=== PATIENT | male | born 1960 | race Caucasian/White ===

== ENCOUNTER 2016-09-08 19:34 | Emergency (ER) | payer OTHER ==
[2016-09-08] MEDS ORDERED: Sodium Chloride 0.9% 10 ML Syringe FLUSH PRN (19:45)
--- NOTE | 2016-09-08 19:49 | EDM.PDOC ---
ED HPI Trauma - General Chief Complaint: Upper Extremity Injury/Pain Stated Complaint: INJURED LEFT WRIST Time Seen by Provider: 09/08/16 19:39 Source: Reports: Patient History Limitations: Reports: No limitations - History of Present Illness INITIAL COMMENTS - FREE TEXT/NARRATIVE: The patient was out riding horse tonight and his horse got spooked and he got bucked off. He has a fractured left wrist and bloody nose. He denies any LOC. He has no headache, neck pain, chest pain, back pain, or abdominal pain. He had some mild left knee pain. The bleeding has stopped now from his nose. [place] had [place] about [place] He has no other health problems. He has an obvious deformity to the left wrist. Occurred When: just prior to arrival Occurred Where: home Method of Injury: fall (Bucked off his horse) Severity: moderate Pain/Injury Location: Reports: face (nose), upper extremity, left (wrist), lower extremity, left (knee) Consciousness: Reports: no loss of consciousness Allergies/ADRs: Allergies No Known Allergies Allergy (Verified 09/08/16 19:52) Home Medications: Ambulatory Orders Aspirin [[place] Aspirin] 81 mg PO DAILY 09/08/16 [Confirmed 09/08/16] Gluc 2KCl/Chondr/Peggy Hy/Hy Ac [Glucosamine & Chondroitin Cap] 1 tab PO DAILY [Confirmed 09/08/16] Multivitamin [Multivitamins] 1 tab PO DAILY 09/08/16 [Confirmed 09/08/16] [place]-3 Fatty Acids [Fish Oil] 1 tab PO DAILY 09/08/16 [Confirmed 09/08/16] Ranitidine [Zantac] 150 mg PO DAILY 09/08/16 [Confirmed 09/08/16] Social & Family History - Tobacco Use Smoking Status *Q: Never Smoker - Recreational Drug Use Recreational Drug Use: No Review of Systems - Review of Systems Review Of Systems: See Below Constitutional: Reports: no symptoms Eyes: Reports: no symptoms Ears: Reports: no symptoms Nose: Reports: epistaxis Mouth/Throat: Reports: no symptoms Respiratory: Reports: No Symptoms Cardiovascular: Reports: no symptoms GI/Abdominal: Reports: No symptoms Genitourinary: Reports: no symptoms Musculoskeletal: Reports: other (Left wrist fracture and left knee pain) Trauma Exam - Physical Exam Exam: See Below Exam Limited By: No limitations General Appearance: Reports: alert, no apparent distress Head: Reports: atraumatic, normocephalic Eyes: bilateral eye: EOMI Ears: Reports: normal external exam Nose: Reports: other (dried blood to the right nare but no active bleeding. No pain upon palpation and no edema and no instability) Throat/Mouth: Reports: Normal inspection Neck: Reports: non-tender, normal alignment, normal inspection Respiratory Exam: Reports: no respiratory distress, lungs clear, normal breath sounds Cardiovascular: Reports: regular rate, rhythm, no edema, no murmur GI/Abdominal: Reports: soft, non tender, no organomegaly Back: Reports: normal inspection, non-tender Extremities: Reports: other ("Dinner fork" deformity to the left wrist with good sensation and pulses. Mild pain upon palpation to the left medial knee. No ligament laxity noted. Good sensation and pulses distally.) ED TRAUMA EXTREMITY PROCEDURES - Joint Reduction Site: other (Left wrist) Sedation: hematoma/fracture block Local anesthesia - Lidocaine (Xylocaine): 1% plain Local anesthetic volume: 3cc Pre-procedure NV status: normal Post-procedure NV status: normal Technique: traction/counter traction Number of Attempts: 1 Post-reduction imaging: acceptably reduced, fracture seen Joint Reduction Complications: No Progress/Comments: This was a reduction of a left distal radius fracture - Splinting Left Upper Extremity Splint site: Left long arm splint Pre-procedure NV status: normal Post-procedure NV status: normal Splint material: fiberglass Splint design: sugar tong Applied & form fitted by: provider Provider post-splint application NV check: NV status normal, good position Complications: No Course - Vital Signs Last Recorded V/S: Last Vital Signs Temp 98.2 F 09/08/16 19:37 Pulse 78 09/08/16 19:37 Resp 16 09/08/16 19:37 BP Pulse Ox 117 H 09/08/16 19:37 - Orders/Labs/Meds Orders: Active Orders 24 hr Category Date Time Status Peripheral IV Care [RC] . DIRECTED Care 09/08/16 19:45 Active Wrist 2V Lt [CR] Stat Exams 09/08/16 21:18 Taken Wrist Comp Min 3V Lt [CR] Stat Exams 09/08/16 19:45 Taken Sodium Chloride 0.9% [Saline Flush] Med 09/08/16 19:45 Active 10 ml FLUSH ASDIRECTED PRN Peripheral IV Insertion Adult [OM.PC] Routine Oth 09/08/16 19:45 Ordered Medication Orders Sodium Chloride (Saline Flush) 10 ml FLUSH ASDIRECTED PRN PRN Reason: Keep Vein Open Last Admin: 09/08/16 19:58 Dose: 10 ml Meds: Medications Generic Name Dose Route Start Last Admin Trade Name Freq PRN Reason Stop Dose Admin Sodium Chloride 10 ml 09/08/16 19:45 09/08/16 19:58 Saline Flush FLUSH 10 ml ASDIRECTED PRN Administration Keep Vein Open Discontinued Medications Generic Name Dose Route Start Last Admin Trade Name Freq PRN Reason Stop Dose Admin Hydromorphone HCl 1 mg 09/08/16 20:33 09/08/16 20:39 Dilaudid IVPUSH 09/08/16 20:34 1 mg ONETIME ONE Administration Hydromorphone HCl 0.5 mg 09/08/16 21:07 09/08/16 21:18 Dilaudid IVPUSH 09/08/16 21:08 Not Given ONETIME ONE Hydromorphone HCl Confirm 09/08/16 21:09 09/08/16 21:18 Dilaudid Administered 09/08/16 21:10 Not Given Dose 0.5 mg .ROUTE .STK-MED ONE Hydromorphone HCl 0.5 mg 09/08/16 21:18 09/08/16 21:19 Dilaudid IVPUSH 09/08/16 21:19 0.5 mg ONETIME ONE Administration Lidocaine HCl 50 ml 09/08/16 20:33 09/08/16 20:42 Xylocaine 1% INJECT 09/08/16 20:34 50 ml ONETIME ONE Administration Ondansetron HCl 4 mg 09/08/16 20:51 09/08/16 20:58 Zofran IVPUSH 09/08/16 20:52 4 mg ONETIME ONE Administration - Re-Assessments/Exams Free Text/Narrative Re-Assessment/Exam: 09/08/16 20:00 I ordered an IV saline lock and an x-ray of his left wrist. 09/08/16 21:53 The x-ray confirmed the fracture. I called Dr Marshall to let him know what is going on and he okayed me to do a reduction of the left distal radius fracture. I reduced the fracture. I splinted him and I will have him follow up with Dr Marshall. Departure - Departure Time of Disposition: 21:55 Disposition: Home, Self-Care 01 Condition: good Clinical Impression: Epistaxis Fracture of radius Qualifiers: Encounter type: initial encounter Radius location: distal Fracture type: closed Fracture morphology: Colles' Laterality: left Qualified Code(s): S52.532A - Colles' fracture of left radius, initial encounter for closed fracture Contusion of left knee Qualifiers: Encounter type: initial encounter Qualified Code(s): S80.02XA - Contusion of left knee, initial encounter Referrals: Tommy Marshall MD [Physician] - 1 Week Forms: ED Department Discharge Additional Instructions: Ice your wrist for 15 minutes every other hour while awake for 2 days. Elevate your wrist above your heart as much as you can for 2 days. Take motrin or aleve for pain or you can take 1 to 2 hydrocodone. Follow up with Dr Marshall. He said he can see you on Tuesday but call tomorrow morning to make your appointment. You may also follow up with Dr Epstein and his number is [phone]. There is also Dr [facility]iano with [facility] and his number is [phone]. Please return if you are worse such as more pain or swelling. - My Orders Last 24 Hours: My Active Orders 09/08/16 19:45 Peripheral IV Care [RC] . DIRECTED Wrist Comp Min 3V Lt [CR] Stat Sodium Chloride 0.9% [Saline Flush] 10 ml FLUSH ASDIRECTED PRN Peripheral IV Insertion Adult [OM.PC] Routine 09/08/16 21:18 Wrist 2V Lt [CR] Stat - Assessment/Plan Last 24 Hours: My Active Orders 09/08/16 19:45 Peripheral IV Care [RC] . DIRECTED Wrist Comp Min 3V Lt [CR] Stat Sodium Chloride 0.9% [Saline Flush] 10 ml FLUSH ASDIRECTED PRN Peripheral IV Insertion Adult [OM.PC] Routine 09/08/16 21:18 Wrist 2V Lt [CR] Stat
[2016-09-08] MEDS ORDERED: Lidocaine 1% 50 ML MDV INJECT ONE (20:33)
[2016-09-08] MEDS ORDERED: HYDROmorphone 1 MG/ML Syringe IVPUSH ONE ×2 (20:33→21:07)
[2016-09-08] MEDS ORDERED: Ondansetron 4 MG/2 ML SDV IVPUSH ONE (20:51)
[2016-09-08] MEDS ORDERED: HYDROmorphone 0.5 MG/0.5 ML Syringe ONE (21:09)
[2016-09-08] MEDS ORDERED: HYDROmorphone 0.5 MG/0.5 ML Syringe IVPUSH ONE (21:18)
--- NOTE | 2016-09-09 11:45 | CR ---
Left wrist: Four views of the left wrist were obtained. Comminuted distal left radial fracture seen with articular extension. Posterior impaction is seen as well as mild displacement. Mild joint space narrowing is noted off the distal navicular bone. Distal ulna appears intact. Soft tissue swelling is identified. Impression: 1. Distal radial fracture as noted above. Diagnostic code #3
--- NOTE | 2016-09-09 11:45 | CR ---
Left wrist: Two views of the left wrist were obtained. Comparison: Previous left wrist study performed on the same day (8:25 PM). Alignment is improved. Mild continued posterior impaction is seen. Fiberglass cast or splint is in place. Other findings are stable and incidental. Impression: 1. Mild continued posterior impaction but alignment is improved from prior exam. 2. Fiberglass cast or splint is in place. Diagnostic code #2
== END 2016-09-08 22:15 | disposition home or self-care (01) ==
LOC: JD.ED 19:34
DX: S52.532A Colles' fracture of left radius, initial encounter for closed fracture (principal); S80.02XA Contusion of left knee, initial encounter; R04.0 Epistaxis; V80.010A Animal-rider injured by fall from or being thrown from horse in noncollision accident, initial encounter; Z79.899 Other long term (current) drug therapy
CPT/HCPCS: 25565; 29125; 73100; 73110; 96374; 96375; 96376; 99284; J1170; J2405; J7050; 25605

== ENCOUNTER 2019-04-02 05:06 | Emergency (ER) | payer OTHER ==
[2019-04-02] MEDS ORDERED: Ondansetron 4 MG/2 ML SDV IVPUSH ONE (05:37)
[2019-04-02] MEDS ORDERED: HYDROmorphone 0.5 MG/0.5 ML Syringe IVPUSH ONE (05:37)
--- NOTE | 2019-04-02 05:38 | EDM.PDOC ---
ED HPI GENERAL MEDICAL PROBLEM - General Chief Complaint: Chest Pain Stated Complaint: CHEST PAIN Time Seen by Provider: 04/02/19 05:17 Source of Information: Reports: Patient, Family () History Limitations: Reports: No Limitations - History of Present Illness INITIAL COMMENTS - FREE TEXT/NARRATIVE: Mr. Wen is a very pleasant 58-year-old man with no chronic medical issues, who states that he was woken at 04:00 this morning with sudden-onset left-sided chest pain, dyspnea, feeling hot and diaphoretic, and nauseated. He describes his chest pain as a pressure and sharp in character, felt to his anterolateral left chest, lateral to the midclavicular line. It is a pain, not a discomfort. It waxes and wanes, and while the patient initially told me that he had not identified any modifiers, on examination, I discovered that his pain in fact became immediately worse upon each inspiration, and sometimes with certain movements, but that if he remained perfectly still, his pain abated to nearly nothing. The patient did not take any [id number] or home remedies prior to coming to the ED. The patient states that he has been diagnosed with pleurisy in the past (he does not know how that diagnosis was made), and that this pain is similar in sensation, but different in distribution - his previous pain had been felt across his chest. Here in the ED, the patient is found to be hemodynamically stable, afebrile, saturating 98% on room air. His ECG, performed by the triage nurse, does not show any acute ischemic changes. Aside from this morning's symptoms, the patient denies any recent illnesses, such as fever, chills, cough, dyspnea, chest pain, palpitations, nausea, vomiting, constipation, diarrhea, abdominal pain, urinary symptoms, recent weight gain or weight loss, recent bloody bowel movements or black bowel movements, recent joint aches, headaches, or rashes. The patient's PCP is Dr. Santiago Cochran. His Orthopedic Surgeon is Dr. Valentino Soriano. Left Chest Pain Score (Numeric/FACES): 7 - Related Data Allergies Allergy/AdvReac Type Severity Reaction Status Date / Time No Known Allergies Allergy Verified 04/02/19 05:13 Home Meds: Home Meds Aspirin [[place] Aspirin] 81 mg PO DAILY 09/08/16 [History] Gluc 2KCl/Chondr/Peggy Hy/Hy Ac [Glucosamine & Chondroitin Cap] 1 tab PO DAILY [History] Multivitamin [Multivitamins] 1 tab PO DAILY 09/08/16 [History] [place]-3 Fatty Acids [Fish Oil] 1 tab PO DAILY 09/08/16 [History] Ranitidine [Zantac] 150 mg PO DAILY 09/08/16 [History] Orphenadrine [Norflex] 1 tab PO Q12H PRN #14 tab.er 04/02/19 [Rx] Past Medical History HEENT History: Reports: Other (See Below) (Left TMJ) Gastrointestinal History: Reports: GERD Genitourinary History: Reports: Renal Calculus Musculoskeletal History: Reports: Fracture (Left distal radius. Bilateral calcanei.) - Past Surgical History HEENT Surgical History: Reports: Adenoidectomy, Tonsillectomy GI Surgical History: Reports: Hernia, Inguinal (bilateral) Musculoskeletal Surgical History: Reports: ORIF (Left distal radius) Social & Family History - Tobacco Use Smoking Status *Q: Never Smoker Tobacco Use Within Last Twelve Months: Smokeless Tobacco (Chewed for a few years when younger) - Caffeine Use Caffeine Use: Reports: Coffee - Alcohol Use Alcohol Use History: Yes Alcohol Use Frequency: Rarely - Recreational Drug Use Recreational Drug Use: No - Living Situation & Occupation Living situation: Reports: , with Spouse Occupation: Employed (Runs equipment) ED ROS GENERAL - Review of Systems Review Of Systems: ROS reveals no pertinent complaints other than HPI. ED EXAM, GENERAL - Physical Exam Exam: See Below Exam Limited By: No Limitations General Appearance: Alert, WD/WN, Mild Distress (Moments of pain with certain movements, inspiration) Eye Exam: Bilateral Eye: EOMI, Normal Inspection Ears: Normal External Exam, Hearing Grossly Normal Nose: Normal Inspection Throat/Mouth: Normal Inspection, Normal Lips, Normal Voice, No Airway Compromise Head: Atraumatic, Normocephalic Neck: Normal Inspection, Full Range of Motion Respiratory/Chest: No Respiratory Distress, Lungs Clear, Normal Breath Sounds, No Accessory Muscle Use, Chest Non-Tender (not reproducible with palpation), Other (Left-sided chest pain is reproducible with inspiration). No: Crackles, Pleural Rub Cardiovascular: Normal Peripheral Pulses, Regular Rate, Rhythm, No Edema, No Gallop, No JVD, No Murmur, No Rub Peripheral Pulses: 4+: Radial (L), Radial (R) GI/Abdominal: Normal Bowel Sounds, Soft, Non-Tender, No Organomegaly, No Distention, No Abnormal Bruit, No Mass (Male) Exam: Deferred Rectal (Males) Exam: Deferred Back Exam: Normal Inspection, Full Range of Motion, NT Extremities: Normal Inspection, Normal Range of Motion, No Pedal Edema, Normal Capillary Refill Neurological: Alert, Oriented, Normal Cognition, No Motor/Sensory Deficits Psychiatric: Normal Affect Skin Exam: Warm, Dry, Intact, Normal Color, No Rash EKG INTERPRETATION EKG Date: 04/02/19 Time: 05:09 Rhythm: NSR Rate (Beats/Min): 64 [place]: Normal P-Wave: Present QRS: Normal ST-T: Normal QT: Normal Comparison: NA - No Prior EKG Course - Vital Signs Last Recorded V/S: Last Vital Signs Temp 35.6 C 04/02/19 05:13 Pulse 63 04/02/19 05:13 Resp 15 04/02/19 05:13 BP 122/78 04/02/19 05:13 Pulse Ox 98 04/02/19 05:13 - Orders/Labs/Meds Orders: Active Orders 24 hr Category Date Time Status EKG Documentation Completion [RC] STAT Care 04/02/19 05:19 Active Sodium Chloride 0.9% [Normal Saline] 1,000 ml Med 04/02/19 05:45 Active IV ASDIRECTED Medication Orders Sodium Chloride (Normal Saline) 1,000 mls @ 150 mls/hr IV ASDIRECTED ROSITA Last Admin: 04/02/19 05:47 Dose: 150 mls/hr Labs: Laboratory Tests 04/02/19 04/02/19 04/02/19 Range/Units 05:17 05:17 05:17 WBC 5.09 (4.23-9.07) K/mm3 RBC 5.71 (4.63-6.08) M/mm3 Hgb 15.6 D (13.7-17.5) gm/dl Hct 45.7 (40.1-51.0) % MCV 80.0 D (79.0-92.2) fl MCH 27.3 (25.7-32.2) pg MCHC 34.1 (32.2-35.5) g/dl RDW Std Deviation 44.9 H (35.1-43.9) fL Plt Count 174 (163-337) K/mm3 MPV 11.5 (9.4-12.3) fl Neut % (Auto) 51.3 (34.0-67.9) % Lymph % (Auto) 36.5 (21.8-53.1) % [place] % (Auto) 8.6 (5.3-12.2) % Eos % (Auto) 2.2 (0.8-7.0) Baso % (Auto) 1.2 (0.1-1.2) % Neut # (Auto) 2.61 (1.78-5.38) K/mm3 Lymph # (Auto) 1.86 (1.32-3.57) K/mm3 [place] # (Auto) 0.44 (0.30-0.82) K/mm3 Eos # (Auto) 0.11 (0.04-0.54) K/mm3 Baso # (Auto) 0.06 (0.01-0.08) K/mm3 D-Dimer, Quantitative < 0.19 L (0.19-0.50) mg/L Sodium 144 (136-145) mEq/L Potassium 3.9 (3.5-5.1) mEq/L Chloride 105 (98-107) mEq/L Carbon Dioxide 30 (21-32) mEq/L Anion Gap 12.9 (5-15) BUN 14 (7-18) mg/dL Creatinine 1.2 (0.7-1.3) mg/dL Est Cr Clr Drug Dosing 67.20 mL/min Estimated GFR (MDRD) > 60 (>60) mL/min BUN/Creatinine Ratio 11.7 L (14-18) Glucose 122 H (74-106) mg/dL Calcium 8.8 (8.5-10.1) mg/dL Total Bilirubin 0.6 (0.2-1.0) mg/dL AST 28 (15-37) U/L ALT 42 (16-63) U/L Alkaline Phosphatase 75 (46-116) U/L Troponin I < 0.017 (0.00-0.056) ng/mL Total Protein 6.5 (6.4-8.2) g/dl Albumin 3.5 (3.4-5.0) g/dl Globulin 3.0 gm/dL Albumin/Globulin Ratio 1.2 (1-2) Meds: Medications Generic Name Dose Route Start Last Admin Trade Name Freq PRN Reason Stop Dose Admin Sodium Chloride 1,000 mls @ 150 mls/hr 04/02/19 05:45 04/02/19 05:47 Normal Saline IV 150 mls/hr ASDIRECTED ROSITA Administration Discontinued Medications Generic Name Dose Route Start Last Admin Trade Name Freq PRN Reason Stop Dose Admin Hydromorphone HCl 0.5 mg 04/02/19 05:37 04/02/19 05:48 Dilaudid IVPUSH 04/02/19 05:38 0.5 mg ONETIME ONE Administration Ibuprofen 600 mg 04/02/19 07:12 Motrin PO 04/02/19 07:13 ONETIME ONE Ondansetron HCl 4 mg 04/02/19 05:37 04/02/19 05:47 Zofran IVPUSH 04/02/19 05:38 4 mg ONETIME ONE Administration Orphenadrine Citrate 100 mg 04/02/19 07:12 Norflex PO 04/02/19 07:13 ONETIME STA - Re-Assessments/Exams Free Text/Narrative Re-Assessment/Exam: 04/02/19 05:35 The patient's left-sided chest pain is non-cardiac for a number reasons: It woke the patient from sleep, it is felt to the far left side of his chest, it is a pain, not a discomfort, and it is movement-dependent, especially with inspiration. His ECG shows no acute changes despite him having active chest pain. My greatest concern is for a pulmonary embolus, although if that is negative, then musculoskeletal etiology is most likely. I have ordered a workup includes a D-dimer. In the meantime, I will treat the patient with some Dilaudid and Zofran. 04/02/19 06:10 2-view chest radiograph appears to be grossly normal. The cardiac silhouette is within normal limits. No pulmonary vascular congestion. No pleural effusions. No focal infiltrate. No pneumothorax. Formal read per the Radiologist pending. 04/02/19 07:13 The patient's CBC is completely unremarkable. His CMP is remarkable for a blood glucose mildly elevated at 122, and is otherwise unremarkable. His troponin is undetectably low. His D-dimer is undetectably low. Test results discussed with the patient and his . As above, his entire workup is unremarkable. Based on his history and physical exam, I suspect that the patient is suffering from a spasm of his left intercostal muscles. The patient will be started on Norflex and ibuprofen, and I will prescribe a 7-day course of Norflex. He can take [id number] ibuprofen. Since he received Dilaudid here, I will write a note for work for today. Departure - Departure Time of Disposition: 07:15 Disposition: Home, Self-Care 01 Condition: Good Clinical Impression: Intercostal muscle strain - Discharge Information *PRESCRIPTION DRUG MONITORING PROGRAM REVIEWED*: Not Applicable *COPY OF PRESCRIPTION DRUG MONITORING REPORT IN PATIENT CANDIDO: Not Applicable Prescriptions: Orphenadrine [Norflex] 1 tab PO Q12H PRN #14 tab.er PRN Reason: Muscle Spasm Instructions: Muscle Strain, [id number] Referrals: Santiago Cochran MD [Primary Care Provider] - Valentino Soriano MD [Physician] - Forms: ED Department Discharge, ED Return to Work/School Form Additional Instructions: You were seen in the emergency room for sudden onset left-sided chest pain, along with feeling out of breath, hot, sweaty, and nauseated. Workup in the ER included blood work, a chest x-ray, and an ECG. Your entire workup was unremarkable. You have not suffered a heart attack. You do not have a blood clot in your lungs. You are not anemic. You do not have a collapsed lung. Based on your history, physical exam, and ER tests, the cause of your pain is most likely due to a spasm of some muscles in between your ribs. You have been started on the muscle relaxant Norflex, and a prescription for Norflex has been sent to the [facility], in [place]. Take one tablet of Norflex every 12 hours, starting this evening, 04/02/2019, as prescribed. Addition to Norflex, you may also take [id number] ibuprofen, 3 tablets ( 600 mg) every 8 hours, with food, as needed for discomfort. A note for work has been provided for you for today. Follow-up with your PCP, Dr. Santiago Cochran, as needed. If any other problems, please do not hesitate to return to the ER. - My Orders Last 24 Hours: My Active Orders 04/02/19 05:19 EKG Documentation Completion [RC] STAT 04/02/19 05:45 Sodium Chloride 0.9% [Normal Saline] 1,000 ml IV ASDIRECTED - Assessment/Plan Last 24 Hours: My Active Orders 04/02/19 05:19 EKG Documentation Completion [RC] STAT 04/02/19 05:45 Sodium Chloride 0.9% [Normal Saline] 1,000 ml IV ASDIRECTED
[2019-04-02] MEDS ORDERED: Sodium Chloride 0.9% 1,000 ML IV SCH (05:45)
--- NOTE | 2019-04-02 06:21 | CR ---
Chest: 2 views of the chest were obtained. Comparison: No prior chest x-ray. Heart size and mediastinum are normal. Nodular density is noted overlying the anterior right 1st rib. Lungs otherwise are clear. Bony structures are within normal limits for the patient's age. Impression: 1. Slight nodular density within the upper right chest. This may relate to costochondral calcification but difficult to completely exclude a small nodule within the right upper lung. Noncontrast chest CT could be obtained to hopefully rule out nodule. 2. Nothing acute is otherwise seen on 2 view chest x-ray. Diagnostic code #9
[2019-04-02] MEDS ORDERED: Orphenadrine 100 MG Tab.ER PO STA (07:12)
[2019-04-02] MEDS ORDERED: Ibuprofen 600 MG Tab PO ONE (07:12)
[2019-04-02 07:32] VITALS: BP 109/69; PULSE 53
== END 2019-04-02 07:35 | disposition home or self-care (01) ==
LOC: JD.ED 05:06
DX: S29.011A Strain of muscle and tendon of front wall of thorax, initial encounter (principal); K21.9 Gastro-esophageal reflux disease without esophagitis; Z79.899 Other long term (current) drug therapy; Z87.891 Personal history of nicotine dependence; Z79.82 Long term (current) use of aspirin; X58.XXXA Exposure to other specified factors, initial encounter
CPT/HCPCS: 36415; 71046; 80053; 84484; 85025; 85379; 93005; 96361; 96374; 96375; 99285; A9270; J1170; J2405; J7040; 93010; 99284

== ENCOUNTER 2021-01-18 11:30 | Emergency (ER) | payer OTHER ==
[2021-01-18 11:52] VITALS: BP 127/72; PULSE 71
--- NOTE | 2021-01-18 12:18 | EDM.PDOC ---
ED HPI GENERAL MEDICAL PROBLEM - General Chief Complaint: Lower Extremity Injury/Pain Stated Complaint: LT FOOT SWOLLEN AND RED Time Seen by Provider: 01/18/21 11:57 Source of Information: Reports: Patient History Limitations: Reports: No Limitations - History of Present Illness INITIAL COMMENTS - FREE TEXT/NARRATIVE: 60-year-old male presents the emergency department with cellulitis to his left foot. Patient was seen at [facility] and diagnosed with cellulitis 3 days ago. He was started on Keflex at that time. The patient denies any fever, chills, nausea, vomiting or diarrhea. He denies injury generalized body aches. He states he has also been applying heat to the area. He states that up until yesterday he had been pretty good about keeping it elevated however yesterday was up working outside. He did have pictures which showed that initially cellulitis was noted up to the mid edge area anteriorly and they stated that he had some redness noted to the back of his calf however this is not apparent today. Patient has been taking Keflex 4 times daily as prescribed. Left Foot Pain Score (Numeric/FACES): 7 - Related Data Allergies Allergy/AdvReac Type Severity Reaction Status Date / Time No Known Allergies Allergy Verified 01/18/21 11:53 Home Meds: Home Meds Glucosam/Chondr/Collagn/Hyalur [Glucosamine & Chondroitin Cap] 1 tab PO DAILY 09/08/16 [History] Multivitamin [Multivitamins] 1 tab PO DAILY 09/08/16 [History] [place]-3 Fatty Acids [Fish Oil] 1 tab PO DAILY 09/08/16 [History] Diclofenac Sodium [Voltaren] 75 mg PO BID 01/18/21 [History] Omeprazole Magnesium [Prilosec Otc] 20 mg PO DAILY 01/18/21 [History] Sulfamethoxazole/Trimethoprim [Bactrim Ds Tablet] 2 each PO BID #14 tablet 01/18/21 [Rx] cephALEXin [Cephalexin] 500 mg PO QID 01/18/21 [History] hydroCHLOROthiazide [Hydrochlorothiazide] 12.5 mg PO DAILY 01/18/21 [History] Past Medical History HEENT History: Reports: Other (See Below) Cardiovascular History: Reports: Other (See Below) Other Cardiovascular History: plurelsey Gastrointestinal History: Reports: GERD Genitourinary History: Reports: Renal Calculus Musculoskeletal History: Reports: Fracture, Other (See Below) Other Musculoskeletal History: left wrist, bilateral heels - Past Surgical History HEENT Surgical History: Reports: Adenoidectomy, LASIK, Tonsillectomy GI Surgical History: Reports: Hernia, Inguinal Musculoskeletal Surgical History: Reports: ORIF Social & Family History - Tobacco Use Tobacco Use Status *Q: Never Tobacco User Second Hand Smoke Exposure: No - Caffeine Use Caffeine Use: Reports: Coffee, Soda - Recreational Drug Use Recreational Drug Use: No - Living Situation & Occupation Living situation: Reports: , with Spouse Occupation: Employed ([employer]) Review of Systems - Review of Systems Review Of Systems: Comprehensive ROS is negative, except as noted in HPI. ED EXAM, GENERAL - Physical Exam Exam: See Below Exam Limited By: No Limitations General Appearance: Alert, WD/WN, No Apparent Distress Ears: Normal External Exam, Hearing Grossly Normal Nose: Normal Inspection Throat/Mouth: Normal Inspection, Normal Lips, Normal Voice, No Airway Compromise Head: Atraumatic Neck: Normal Inspection, Supple Respiratory/Chest: No Respiratory Distress, No Accessory Muscle Use Cardiovascular: Normal Peripheral Pulses, Regular Rate, Rhythm. No: No Edema (2+ edema noted to the left ankle medial and lateral) Peripheral Pulses: 2+: Dorsalis Pedis (L), Dorsalis Pedis (R) GI/Abdominal: No Distention (Male) Exam: Deferred Rectal (Males) Exam: Deferred Back Exam: Normal Inspection Extremities: Normal Range of Motion, Normal Capillary Refill, Pedal Edema (2+ e jacy noted to lateral and medial malleolus area). No: Normal Inspection (Cellulitis noted to the left lower extremity from the midfoot to distal tib-fib area on the dorsal aspect), Non-Tender (Tenderness noted to the left lower extremity) Neurological: Alert, Oriented, Normal Cognition Psychiatric: Normal Affect, Normal Mood Skin Exam: Warm, Dry, Intact, Erythema (Left lower extremity). No: No Rash (Sialitis noted to the dorsal aspect of left midfoot to distal tib-fib area) Lymphatic: No Adenopathy Course - Vital Signs Text/Narrative:: Upon assessment, pedal pulses are palpable bilaterally. Patient does have erythema and edema noted from the midfoot to the distal tib-fib area on the dorsal aspect. Ankle is swollen with 2+ edema to the lateral and medial malleolus. There is pea-sized area which is more erythematous than the surrounding tissue. However there is less erythema noted to the surrounding tissue. Area is warm to touch. There is no open areas noted. Patient will be discharged home with a prescription for Bactrim DS 2 tabs twice daily take for the next 7 days in addition to the Keflex. He has been given strict instructions to keep the foot elevated. He will also ice the affected area 30 minutes at a time every 3 hours while awake and stay away from any heating pads or such. Last Recorded V/S: Last Vital Signs Temp 97.4 F 01/18/21 11:52 Pulse 71 01/18/21 11:52 Resp 20 01/18/21 11:52 BP 127/72 01/18/21 11:52 Pulse Ox 99 01/18/21 11:52 Departure - Departure Time of Disposition: 12:14 Disposition: Home, Self-Care 01 Condition: Good Clinical Impression: Cellulitis of foot, left - Discharge Information Prescriptions: Sulfamethoxazole/Trimethoprim [Bactrim Ds Tablet] 2 each PO BID #14 tablet Referrals: Santiago Cochran MD [Primary Care Provider] - Forms: ED Department Discharge Additional Instructions: You were seen in the emergency department today with cellulitis, which is an infection of the skin, noted to your left foot. Infection seems to be resolving somewhat after looking at the pictures however it looks like it is localizing more to one area. I have sent a prescription for an antibiotic, called Bactrim DS, up to [facility]. You will need to take 2 tablets twice daily for the next 7 days. Keep in mind that antibiotics take at least 48 to 72 hours for you to notice that they are working. I suspect over the next 3 to 4 days you should see an improvement in the infection should be resolving. Be sure to take the Keflex and Bactrim as prescribed until gone to completely clear up any and all infection. Do not use heat to the area as it causes more redness and inflammation. Recommend elevating your foot as much as possible to decrease swelling. Also recommend using ice to the area for 30 minutes at a time every 3 hours while awake. Should you develop fever, chills, nausea, vomiting or diarrhea you should be reevaluated. Should your condition worsen or change, do not hesitate returning to the emergency department. Sepsis Event Note (ED) - Focused Exam Vital Signs: Vital Signs Temp Pulse Resp BP Pulse Ox 01/18/21 11:52 97.4 F 71 20 127/72 99
== END 2021-01-18 12:32 | disposition home or self-care (01) ==
LOC: JD.ED 11:30
DX: L03.116 Cellulitis of left lower limb (principal); K21.9 Gastro-esophageal reflux disease without esophagitis; Z79.899 Other long term (current) drug therapy
CPT/HCPCS: 99283

== ENCOUNTER 2023-12-18 02:57 | Emergency (ER) | payer MEDICARE, OTHER ==
[2023-12-18] MEDS: Fluorescein 1 MG Ophth Strip ONE (04:17)
[2023-12-18] MEDS: Fluorescein 1 MG Ophth Strip EYEBOTH ONE (04:17)
[2023-12-18 04:43] VITALS: BP 98/64; PULSE 60
== END 2023-12-18 04:40 | disposition home or self-care (01) ==
LOC: JD.ED 02:57
DX: H16.133 Photokeratitis, bilateral (principal); K21.9 Gastro-esophageal reflux disease without esophagitis; Z79.899 Other long term (current) drug therapy
CPT/HCPCS: 99283